=== PATIENT | male | born 1970 | race Caucasian/White ===

== ENCOUNTER 2017-11-01 14:46 | Emergency (ER) | payer SELFPAY ==
[2017-11-01 15:33] VITALS: BP 115/83
--- NOTE | 2017-11-01 15:43 | UC ---
Skin Complaint HPI - HPI Summary HPI Summary: 47 yo male presents with spider bite to right foot. He tells me that 4-5 days ago he was bitten by a spider on his right big toe. Since that time the area has become more red, swollen, and painful. He is able to ambulate, but does have pain. Denies fever or chills. Unsure what the spider looked like. - History of Current Complaint Chief Complaint: UCSkin Time Seen by Provider: 11/01/17 15:43 Stated Complaint: BUG BITE Hx Obtained From: Patient Onset/Duration: Sudden Onset Skin Exposure Onset/Duration: Days Ago Onset Severity: Severe Current Severity: Severe Pain Intensity: 10 Pain Scale Used: 0-10 Numeric - Allergy/Home Medications Allergies/Adverse Reactions: Allergies Allergy/AdvReac Type Severity Reaction Status Date / Time No Known Allergies Allergy Verified 11/01/17 15:26 Home Medications: Home Medications Ibuprofen 400 mg PO Q6HR PRN 11/01/17 [History Confirmed 11/01/17] Review of Systems Constitutional: Negative Skin: Other - Spider bite right foot Respiratory: Negative Cardiovascular: Negative Neurovascular: Negative Musculoskeletal: Negative Neurological: Negative Psychological: Negative All Other Systems Reviewed And Are Negative: Yes PMH/Surg Hx/FS Hx/Imm Hx - Additional Past Medical History Additional PMH: None - Surgical History Surgical History: Yes Surgery Procedure, Year, and Place: HERNIA REPAIR- 1987 - Family History Known Family History: Positive: None - Social History Lives: With Family Alcohol Use: None Substance Use Type: None Smoking Status (MU): Former Smoker Type: Cigarettes Amount Used/How Often: 1 1/2 PPD When Did the Patient Quit Smoking/Using Tobacco: 2016 Physical Exam - Summary Physical Exam Summary: GENERAL: NAD. WDWN. No pain distress. SKIN: Right great toe MTP with central spider bite and two small puncture wounds. Surrounding 2.0cm diameter of mild erythema and warmth. Mild TTP. No streaking, bleeding, or drainage. NECK: Supple. Nontender. No lymphadenopathy. CHEST: No accessory muscle use. Breathing comfortably and in no distress. CV: Pulses intact. Cap refill <2seconds MSK: FROM great toe NEURO: Alert. PSYCH: Age appropriate behavior. Triage Information Reviewed: Yes Vital Signs: Initial Vital Signs Temp 99 F 11/01/17 15:27 Pulse 80 09/13/18 15:27 Resp 16 11/01/17 15:27 BP 115/83 11/01/17 15:27 Pulse Ox 99 11/01/17 15:27 Vital Signs Reviewed: Yes Course/Dx - Course Course Of Treatment: Cellulitis due to bug bite right foot - Diagnoses Provider Diagnoses: Cellulitis due to bug bite right foot Discharge - Sign-Out/Discharge Documenting (check all that apply): Patient Departure All imaging exams completed and their final reports reviewed: No Studies - Discharge Plan Condition: Stable Disposition: HOME Prescriptions: Cephalexin CAP* [Keflex CAP*] 500 mg PO BID #14 cap Patient Education Materials: Insect Bite or Sting (ED) Referrals: No Primary Care Phys,NOPCP [Primary Care Provider] - Additional Instructions: If you develop a fever, shortness of breath, chest pain, new or worsening symptoms - please call your PCP or go to the ED. - Billing Disposition and Condition Condition: STABLE Disposition: Home
== END 2017-11-01 16:10 | disposition home or self-care (01) ==
LOC: UCEAST 14:46
DX: S90.861A Insect bite (nonvenomous), right foot, initial encounter (principal); L03.115 Cellulitis of right lower limb; W57.XXXA Bitten or stung by nonvenomous insect and other nonvenomous arthropods, initial encounter; Y93.9 Activity, unspecified; Y92.9 Unspecified place or not applicable; Z87.891 Personal history of nicotine dependence
CPT/HCPCS: 99213; G0463